=== PATIENT | male | born 1985 | race Caucasian/White ===

== ENCOUNTER 2017-04-08 07:07 | Outpatient (CLI) | payer BC ==
--- NOTE | 2017-04-08 08:54 | MRI ---
MRI LUMBAR SPINE NONCONTRAST: Date: 04/08/17 CLINICAL HISTORY: Lumbar radiculopathy. No prior comparison. FINDINGS: The conus medullaris is normal in morphology, terminating at the T12-L1 level. There is no acute abno rmality of the imaged retroperitoneum. There is mild multilevel bilateral facet osteoarthritis. There are Schmorl's nodes of the superior L4 and L5 end plates. Modic Type II degenerative signal alterati on of the inferior L4 and superior L5 end plate present. L5-S1: There is no significant central canal or foraminal stenosis. L4-5: There is a mild, left asymmetric disc osteophyte complex which crowds the traversing left L5 nerve ro ot. No high grade foraminal stenosis. L3-4: There is a broad based disc protrusion, most focal within the left paracentral zone, with moderate ce ntral canal stenosis. No high grade foraminal stenosis. L2-3: No significant central canal or foraminal stenosis. L1-2: No significant central canal or neural foraminal stenosis. IMPRESSION: Disc protrusion at L3-4, broad based, with moderate central canal stenosis. Additional findings are d iscussed above. POS: SAM
== END 2017-04-08 07:08 | disposition home or self-care (01) ==
LOC: MRI 07:07
PROVIDERS: ATTEND Specialist
DX: M51.16 Intervertebral disc disorders with radiculopathy, lumbar region (principal); M48.061 Spinal stenosis, lumbar region without neurogenic claudication
CPT/HCPCS: 72148

== ENCOUNTER 2021-12-31 08:37 | Emergency (ER) | payer OTHER ==
[2021-12-31] MEDS ORDERED: Boostrix 0.5 ML (Tdap) VIAL (>/=7 yrs of age) ONE (09:44)
[2021-12-31] MEDS ORDERED: Lidocaine 1% PF 5 ML VIAL ONE ×3 (09:44→10:39)
== END 2021-12-31 11:10 | disposition home or self-care (01) ==
LOC: ERS 08:37
DX: S61.412A Laceration without foreign body of left hand, initial encounter (principal); F17.220 Nicotine dependence, chewing tobacco, uncomplicated; W26.0XXA Contact with knife, initial encounter
CPT/HCPCS: 12002; 90471; 90715

== ENCOUNTER 2022-01-13 08:19 | Emergency (ER) | payer OTHER ==
[2022-01-13] MEDS ORDERED: Bacitracin 1 PK ONE (08:53)
== END 2022-01-13 09:03 | disposition home or self-care (01) ==
LOC: ERS 08:19
DX: S61.412D Laceration without foreign body of left hand, subsequent encounter (principal); F17.220 Nicotine dependence, chewing tobacco, uncomplicated; X58.XXXD Exposure to other specified factors, subsequent encounter

== ENCOUNTER 2022-06-02 07:28 | Outpatient (CLI) | payer OTHER | END 2022-06-02 07:29 | disposition home or self-care (01) | LOC: SCSMRI 07:28 | PROVIDERS: ATTEND Nurse Practitioner Family | DX: M47.26 Other spondylosis with radiculopathy, lumbar region (principal); M51.16 Intervertebral disc disorders with radiculopathy, lumbar region; M48.061 Spinal stenosis, lumbar region without neurogenic claudication | CPT/HCPCS: 72148 ==